=== PATIENT | male | born 1970 | race Caucasian/White ===

== ENCOUNTER 2022-04-08 07:33 | Observation (INO) ==
[2022-04-08] MEDS ORDERED: 0.9 % Sodium Chloride 1,000 ML ONE ×4 (07:45→09:52)
[2022-04-08] MEDS ORDERED: *HR* Vasopressin 20 UNIT/ML VIAL ONE (08:17)
[2022-04-08] MEDS ORDERED: *HR* Midazolam HCl 2 MG/2 ML VIAL ONE (08:19)
[2022-04-08] MEDS ORDERED: *HR* FentaNYL (PF) 100 MCG/2 ML VIAL ONE (08:19)
[2022-04-08] MEDS ORDERED: *HR* Heparin 10,000 UNIT/10 ML VIAL ONE ×2 (08:28→08:39)
[2022-04-08] MEDS ORDERED: Protamine Sulfate 50 MG/5 ML VIAL IVP ONE (08:38)
[2022-04-08] MEDS ORDERED: Heparin 1,000 UNITS/500 mL 1,500 ML ONE (08:39)
[2022-04-08] MEDS ORDERED: Ondansetron 4 MG/2 ML VIAL IVP PRN (09:49)
[2022-04-08] MEDS ORDERED: *HR* OxyCODONE Immed Rel 5 MG TABLET PO PRN (09:49)
[2022-04-08] MEDS ORDERED: *HR* FentaNYL (PF) 100 MCG/2 ML VIAL IVP PRN (09:49)
[2022-04-08] MEDS ORDERED: Naloxone 0.4 MG/ML INJ IVP PRN (10:55)
[2022-04-08] MEDS ORDERED: Metoprolol XL (24 HR) Succ 50 MG TAB.ER.24H PO SCH (21:00)
[2022-04-08] MEDS ORDERED: Apixaban 5 MG TABLET PO SCH (21:00)
[2022-04-09 03:31] VITALS: TEMP 98.3
[2022-04-09 06:55] VITALS: BP 117/64; PULSE 61; O2SAT 94
== END 2022-04-09 08:59 | disposition home or self-care (01) ==
LOC: 2NNU 07:33 → INVDIALAB 07:33
PROVIDERS: ADMIT Internal Medicine Clinical Cardiac Electrophysiology; ATTEND Internal Medicine Clinical Cardiac Electrophysiology